=== PATIENT | female | born 1990 | race Caucasian/White ===

== ENCOUNTER 2022-02-05 09:07 | Outpatient (CLI) | payer BC, SELFPAY ==
[2022-02-05 14:25] LABS: SARS PCR* Negative SARS-CoV-2 (Negative)
== END 2022-02-05 09:08 | disposition home or self-care (01) ==
LOC: KYNREF 09:07
PROVIDERS: PCP Family Medicine; Visit Provider Nurse Practitioner Family
DX: Z20.822 Contact with and (suspected) exposure to COVID-19 (principal); Z01.818 Encounter for other preprocedural examination
CPT/HCPCS: 87635

== ENCOUNTER 2022-02-08 09:02 | Day surgery (SDC) | payer BC, SELFPAY ==
[2022-02-08] VITALS (8 sets, daily range): BP systolic 93–123; BP diastolic 52–106; PULSE 65–120; RESP 10–20; TEMP 36.4–36.6; O2SAT 98–100; BMI 23.8
[2022-02-08] MEDS: BUPIVACAINE 0.5%/EPINEPHRINE 0.9 MG (30.9 ML) INJECTION (06:00)
[2022-02-08] MEDS: OXYMETAZOLINE 0.05% NASAL SPRAY 2 SPRAY NOSTRIL-B (09:23)
[2022-02-08] MEDS: LACTATED RINGERS 1000 ML 1,000 ML 100 ML IV (09:30)
[2022-02-08 10:01] LABS: HCG Qualitative* Negative (Negative)
[2022-02-08] MEDS: ETHYL CHLORIDE 1 APPLICATION 1 APPLIC TOPICAL (10:16)
[2022-02-08] MEDS: SODIUM CHLORIDE 0.9 % (FLUSH) 10 ML SYRINGE IVF (10:16)
[2022-02-08] MEDS: LACTATED RINGERS 1000 ML 1,000 ML 105 ML IV (10:30)
[2022-02-08] MEDS: MUPIROCIN 1 GM PACKET 1 APPLIC TOPICAL (10:42)
[2022-02-08] MEDS: COCAINE HCL 4 % 4 ML SOLUTION NOSTRIL-B (10:42)
[2022-02-08] MEDS: AYR SALINE NASAL GEL 1 APPLIC NOSTRIL-B (11:12)
--- NOTE | 2022-02-08 11:18 | W.PM.ENTPROC ---
Procedure Note Date of procedure: 02/08/22 Procedure: Preop diagnosis right maxillary sinus disease inferior turbinate hypertrophy, nasal obstruction Postoperative diagnosis same Findings right maxillary sinus mucous retention cyst Procedure submucous partial resection inferior turbinates endoscopic right maxillary antrostomy with tissue removal Under general trach anesthesia patient was prepped and draped in usual fashion and nose injected and decongested. Image navigation was used for the procedure with registration of 3 mm. The there was a previous right antrostomy that was entered with a curved suction. Agitation of the floor of the sinus with the suction ruptured a maxillary sinus mucous retention cyst and a large amount of purulence mucoid fluid was aspirated. A small amount of tissue was removed with an upbiting ethmoid forceps. The right middle turbinate was crushed prior to this to obtain access to the sinus. The inferior turbinates were then both outfractured a stab incision was made in the anterior right inferior turbinate conservative anterior submucous resection performed with Josemanuel forceps. The Coblation was used for hemostasis and cauterized the inferior 10% this was repeated on the left side in identical fashion. Merocel pack coated in Bactroban was trimmed lengthwise and placed in the side the nose beneath middle turbinates. The patient was taken to recovery satisfactory condition blood loss less than 5 mL Surgeon: Marcel Elias MD
[2022-02-08] MEDS: OXYCODONE 5 MG TABLET PO (12:14)
[2022-02-08] MEDS: IBUPROFEN 200 MG TABLET PO (12:15)
--- NOTE | 2022-02-08 12:39 | W.ANESCHARGE ---
Anesthesia Charges Start Date/Time Anesthesia Start Date: 02/08/22 Anesthesia Start Time: 10:51 Stop Date/Time Anesthesia Stop Date: 02/08/22 Anesthesia Stop Time: 11:31 Summary Emergency: No
--- NOTE | 2022-02-08 13:00 | W.ANESCHARGE ---
Anesthesia Charges Start Date/Time Anesthesia Start Date: 02/08/22 Anesthesia Start Time: 10:51 Stop Date/Time Anesthesia Stop Date: 02/08/22 Anesthesia Stop Time: 11:31 Summary Emergency: No
== END 2022-02-08 12:46 | disposition home or self-care (01) ==
PROVIDERS: Anesthesiology; PCP Family Medicine; Visit Provider Otolaryngology
PROC: (CPT 31231; principal; 2022-02-08 10:30)
DX: J32.0 Chronic maxillary sinusitis (principal); J34.3 Hypertrophy of nasal turbinates; J34.89 Other specified disorders of nose and nasal sinuses; J34.1 Cyst and mucocele of nose and nasal sinus
CPT/HCPCS: 30140; 31267; 00160; 84703; 88305; A9270; J0330; J1100; J2250; J2405; J2704; J3010; J7120

== ENCOUNTER 2022-07-14 14:27 | Emergency (ER) | payer BC, SELFPAY ==
[2022-07-14 15:18] VITALS: BP 119/72; PULSE 82; O2SAT 100
[2022-07-14 15:19] VITALS: PULSE 84; O2SAT 99
[2022-07-14 15:21] VITALS: BP 119/72; PULSE 83; RESP 16; TEMP 36.7; O2SAT 99; BMI 21.6
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
--- NOTE | 2022-07-14 15:50 | CRLHL7_ITS ---
For Patients: As a result of the Century Cures Act, medical imaging exams and procedure reports are released immediately into your electronic medical record. You may view this report before your referring provider. If you have questions, please contact your health care provider. INDICATION: Chest pain. TECHNIQUE: Portable AP chest radiograph. COMPARISON: 10/09/2012. FINDINGS: Lungs and pleural spaces clear. Normal cardiac and mediastinal contours. IMPRESSION: Negative chest radiograph. Dictated by Edward Little MD @ 07/14/2022 4:21:31 PM Dictated by: Edward Little MD @ 07/14/2022 16:21:33 (Electronically Signed)
[2022-07-14 16:06] VITALS: O2SAT 100
[2022-07-14 16:36] LABS: Basophils Absolute Auto 0.02 K/uL (0.00-0.30); Basophils Percent Auto 0.3 % (0.0-3.0); Eosinophils Absolute Auto 0.07 K/uL (0.00-0.50); Eosinophils Percent Auto 0.9 % (0.0-7.0); Hematocrit 43.1 % (33.0-51.0); Hemoglobin* 15.2 gm/dL (12.0-16.0); Immature Granulocytes Abs Auto 0.01 K/uL (0.00-0.30); Immature Granulocytes Pct Auto 0.1 %; Lymphocytes Absolute Auto 1.96 K/uL (0.90-2.90); Lymphocytes Percent Auto 25.7 % (20-44); Mean Corpuscular HGB Conc 35 gm/dL (32-36); Mean Corpuscular Hemoglobin 30 pg (26-34); Mean Corpuscular Volume 84 fL (80-100); Monocytes Percent Auto 4.6 % (0.0-11.0); Neutrophils Absolute Auto 5.22 K/uL (1.7-7.0); Neutrophils Percent Auto 68.4 % (42.0-72.0); Platelet Count* 209 K/uL (140-440); RDW Coefficient of Variation % 11.9 % (11.5-15.5); Red Blood Count 5.12 m/uL (4.00-5.20); White Blood Count* 7.63 K/uL (4.50-11.00)
[2022-07-14 16:37] LABS: Chloride* 105 mmol/L (96-114); Slide Review Reflex No; Sodium* 138 mmol/L (135-149)
[2022-07-14 16:38] LABS: Potassium* 4.1 mmol/L (3.6-5.1)
[2022-07-14 16:40] LABS: Creatinine* 0.8 mg/dL (0.5-1.5); Est. Creatinine Clearance* 90.84; Estimated Glomerular Filt Rate 100 ml/min
[2022-07-14 16:41] LABS: Blood Urea Nitrogen* 13 mg/dL (5-24); Calcium* 9.4 mg/dL (8.4-10.6); Carbon Dioxide* 24 mmol/L (20-32); Glucose* 84 mg/dL (60-115)
[2022-07-14 16:46] LABS: C Reactive Protein* < 0.5 mg/dL (0.5-1.0)
== END 2022-07-14 17:26 | disposition home or self-care (01) ==
PROVIDERS: Emergency Provider Family Medicine; PCP Family Medicine
DX: R07.9 Chest pain, unspecified (principal)
CPT/HCPCS: 36415; 71045; 80048; 84484; 85025; 86140; 93005; 94761; 99284; 99285

== ENCOUNTER 2022-09-25 10:49 | Outpatient (CLI) | payer BC, SELFPAY ==
--- NOTE | 2022-09-25 11:00 | CRLHL7_ITS ---
For Patients: As a result of the Century Cures Act, medical imaging exams and procedure reports are released immediately into your electronic medical record. You may view this report before your referring provider. If you have questions, please contact your health care provider. INDICATION: Sinusitis. TECHNIQUE: Noncontrast CT images acquired through the paranasal sinuses. COMPARISON: CT sinus 12/26/2021. FINDINGS: Postsurgical changes of right maxillary antrostomy. No air-fluid levels to suggest acute sinusitis. Moderate lobulated opacity along the floor of the right maxillary antrum, not significantly changed. The right maxillary sinus outflow tract is widely patent. Minimal left maxillary sinus mucosal thickening. The left ethmoid infundibulum is widely patent. The frontal sinuses are hypoplastic and clear. Minimal mucosal thickening in the ethmoid air cells. Trace mucosal thickening in the left sphenoid sinus. The right sphenoid sinus is clear. The sphenoethmoidal recesses are widely patent. Minimal leftward bowing of the nasal septum. No nasal cavity masses. The mastoid air cells are clear. IMPRESSION: 1. No air-fluid levels to suggest acute sinusitis. No significant change compared to the prior CT. 2. Moderate lobulated opacity along the right maxillary antral floor may be secondary to retention cysts/polyps. The right maxillary sinus outflow tract is widely patent. 3. Postsurgical changes of endoscopic sinus surgery. Please note that all CT scans at this facility use dose modulation, iterative reconstruction, and/or weight-based dosing when appropriate to reduce radiation dose to as low as reasonably achievable. Dictated by Jackson Metz MD @ 09/25/2022 5:53:45 PM (Electronically Signed)
== END 2022-09-25 10:50 | disposition home or self-care (01) ==
LOC: CT 10:50
PROVIDERS: PCP Family Medicine; Visit Provider Otolaryngology
DX: J32.9 Chronic sinusitis, unspecified (principal); J32.0 Chronic maxillary sinusitis
CPT/HCPCS: 70486

== ENCOUNTER 2023-08-26 09:42 | Outpatient (CLI) | payer BC, SELFPAY ==
--- OUTSIDE RECORDS SUMMARY | 2023-08-26 09:49 | XMS_ITS | Data Portability ---
Author Name Unknown Address [address] [place] [id number] Phone [phone] Organization [place] [facility], [place] Address [address] [place] [address] Care Team Providers Care Home Care Music Therapist Name Role Phone KEYLA ELIAS Referring Provider MATT DARNELL PHYSICAL THERAPIST Physical Therapis t Assessment Encounter Date Assessment Date Assessment LastModified by Organization Details LastModified Time 03/26/2022 03/26/2022 CT was taken totom resendez in [place]. Not available 03/26/2022 14:22:18 03/26/2022 03/26/2022 Today I spent a considerable amount of time discussing the patients past medical and personal history, as well as performing a physical examination all of which is documented in it's entirety in the electronic health record. I reviewed the pathophysiology of the disorder, potential contributing and risk factors as well as treatment options to address their complaints. I recommended advanced imaging with CT. Today cone beam CT imaging was obtained. Eloisa was seen in consultation with Dr. Myke Elias. She has a recent history of cystectomy in her sinuses on the right. She is concerned that her anatomy has shifted on the right side. There is downward slanting of occlusal pain on the right however I'm not sure if it's related with the surgery. There is mild edema in the right maxillary sinus on palpation. Therefore, I suggested obtaining a CT of maxilla and mandible. We discussed today that she is experiencing myofascial pain of masticatory and cervical muscles. From a treatment perspective I recommended a rehabilitative treatment approach. Treatment begins with home self management designed to rest the muscles of mastication and reduce inflammation in the temporomandibular joints. This includes heat and ice compresses, eating a soft food or pain-free diet, bilateral chewing identifying and decreasing daytime muscle tension and modification of their sleep position. Today I taught simple jaw exercises designed to improve the jaw mechanics and movement, improve range of mouth opening and improve TM joint fluid circulation to facilitate healing. This includes simple jaw stretch. This was both demonstrated and given in written format. Concurrently I taught proper posture. Beyond self management I believe that they would benefit from a mandibular intraoral appliance. Today we are starting the process of prior authorization to fabricate the oral appliance. In addition I've recommended rehabilitation with physical therapy. This will be done closer to her home in [place]. Today a prescription for cyclobenzaprine 5 mg qhs, was provided to the patient. The risks and benefits associated with the prescribed medication was discussed with the patient today. Patient was asked to discontinue medication intake and return to clinic if significant side effects were noted from the medication. The goal of treatment is to improve pain, function and focus on long-term self-management strategies. I believe that by following these treatment recommendations there is a good prognosis for reduction of symptoms. History was obtained from the patient. The patient has 4 diagnoses they would like to address. This case is moderate complexity because of multiple diagnoses with chronic symptoms. Data reviewed included: outside records. Discussion with pain team members after visit was necessary. Risk of complications include progressive disease/symptoms. Today time spent may have included a review of past records, history taking, review of diagnoses, contributing factors, treatment plan, diagnostic testing, prognosis, expectations, risks and complications of treatment/no treatment, discussions with other providers and completing documentation was 60 minutes. Cost of care and insurance coverage was reviewed and discussed with the patient. Not available 03/26/2022 12:18:26 Plan of Treatment Reminders Order Date Submit Date Provider Last Modified By Organization Details Last Modified Time Details Appointments None recorded. Lab None recorded. Referral physical therapist referral - Please call her to schedule. 2021 022 [email or web address] 3 Matt Darnell Physical Therapist, [address], [address], [place], [address], 10:25:52 Procedures None recorded. Surgeries None recorded. Imaging CT, temporal bone, w/o contrast 2021 022 [email or web address] 3 [place], [facility] [address], [place], [address], 10:27:28 Medication Orders cyclobenzap rine 5 mg tablet 2021 022 [facility] [address] [place] [address], [address], 11:24:14 Patient TargetsNo targets recorded. Patient Instructions Encounter Date Encounter Id Patient Instructions Last Modified By Organization Details Last Modified Time 03/26/2022 [id number] Self Care for TMD Not availab le 03/26/2022 11:24:04 oral appliance preparation* Not available 03/26/2022 11:24:04 Reason for Referral Physical Therapist Referral for Myofascial pain Myofascial pain masticatory and cervical muscles, arthralgia of TMJ and history of sinus surgery Please call her to schedule. Referring Physician: Seth Mix, Pain Management, Encounter Date: 03/26/2022 Results Created Date Observation Date Name Description Value Unit Range Abnormal Flag LastModifiedBy Organization Detail LastModifiedTime 03/26/2003/26/2022 oral appli ance prepa ratio n* Type of appliance mandib ular stabil izatio n applia nce Not Available [place] [address], [place], [address], 03/26/2022 10:19:35 03/26/20 22 04/02/2022 CT, tempo ral bone, w/o contr ast No observ ation record ed. [place] [address], [place], [address], 04/14/2022 15:29:37 04/11/20 CT, tempo ral bone, w/o contr ast No observ ation record ed. [email or web address] [place] [address], [place], [address], 04/11/2022 10:06:02 Result Notes None recorded. 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 022 SETH MIX BDS, [place] [address], [place], [address], [place] [facility] 2 12:01:52 Myofascial pain Active 022 SETH MIX BDS, [place] [address], [place], [address], [facility] 2 12:01:54 Arthralgia of temporomandibular joint Active 022 SETH MIX BDS, [place] [address], [place], [address], [place] [facility] 2 12:02:26 History of nasal sinus surgery Active 022 SETH MIX BDS, [place] [address], [place], [address], [facility] 2 12:03:14 Problem Notes None recorded. Procedures Surgical History Date Name Laterality Status Provider Name and Address Organization Details Recorded Time 03/26/2022 CT TMJ completed Lanette sahu, [facility] 03/26/2022 12:36:45 Imaging Results Imaging Date Name Status LastModified by [facility] Details LastModified Time 04/02/2022 CT, temporal bone, w/o contrast completed [place] [address], [place], [address], 04/14/2022 15:29:37 04/11/2022 CT, temporal bone, w/o contrast completed [email or web address] [place] [address], [place], [address], 04/11/2022 10:06:02 Procedure Notes None recorded. Medical Equipment None Reported. Allergies No known drug allergies Medications Name Sig Start Date Stop Date Status Note LastModified by Organization Details LastModified Time doxycycline hyclate 100 mg capsule TAKE 1 CAPSULE BY MOUTH TWICE DAILY FOR 10 DAYS 03/26 completed Not Available Not Available Not Available cephalexin 250 mg capsule TAKE 1 CAPSULE BY MOUTH THREE TIMES DAILY 03/26 completed Not Available Not Available Not Available ondansetron 4 mg disintegrat ing tablet DISSOLVE 1 TABLET IN MOUTH EVERY 8 HOURS 03/26 completed Not Available Not Available Not Available oxycodone 5 mg tablet TAKE 1 TABLET BY MOUTH EVERY 4 HOURS NEEDED FOR PAIN 03/26 completed Not Available Not Available Not Available cyclobenzap rine 5 mg tablet Take 1 tablet every day by oral route at dinner for 30 days. active Not Available Not Available No t Available Vitals Date Recorded Body height Body mass index (BMI) Body weight Body temperature Heart rate Systolic blood pressure Diastolic blood pressure Provider Name and Address Organization Details Last Updated DateTime 2 165.1 cm 23.3 kg/m2 33792.9 3 g 97.5 [degF] 82 /min 103 mm[Hg] 72 mm[Hg] Bhanu sahu [facility] 2 10:24:13 Date Recorded Body height Provider Name an d Address Organization Details Last Updated DateTime 03/26/2022 165.1 cm Lanette sahu [facility] 03/26/2022 12:36:53 Social History Question Answer Notes LastModified by Organizat ion Details LastModified Time Tobacco Smoking Status Former Smoker Bhanu sahu [facility] 03/26/2022 10:25:39 What Is Your Level Of Alcohol Consumption? Occasional Information not available 03/26/2022 What Is Your Level Of Caffeine Consumption? Occasional Information not available 03/26/2022 Are You Currently Employed? No Information not available 03/26/2022 What Type Of Diet Are You Following? REGULAR Information not available 03/26/2022 What Is The Highest Grade Or Level Of School You Have Completed Or The Highest Degree You Have Received? [id number] Information not available 03/26/2022 What Is Your Relationship Status? Information not available 03/26/2022 Sex: Female Functional Status Question Answer Note LastModified by Organizat ion Details LastModified Time What is your exercise level? Occasional Information not available 03/26/2022 Mental Status None recorded. Family History Relationship Description Onset Age of this Age Resolved Age Notes Father Arthritis Father Diabetes mellitus Mother Arthritis Mother Depressive disorder Mother Headache Paternal Grandfather Diabetes mellitus Paternal Grandmother Heart disease Medical History Condition Response Coronary Artery Disease N Other Y Gout N Chronic fatigue syndrome N Hyperthyroidism N Premenstrual syndrome (PMS) N MRSA Y Head Trauma/Injury Y Emphysema N Irritable bowel syndrome N Glaucoma N Lung Disease N COPD N Hypothyroidism N Depression N Pneumonia N Pacemaker N Obstructive Sleep Apnea N Anxiety Disorder N Autoimmune disease N Muscle, Joint, or Bone Problems N Vision or Eye Problems N Arthritis Y Serious Illness or Injuries N Acid Reflux (GERD) N Cancer N Stroke N Eating disorder N Neck Injury N Back Injury N High Cholesterol N History of chemotherapy N Neurologic Disorder N Liver Disease N Organ Transplant N Rheumatoid Arthritis N Headaches Y Fibromyalgia N Kidney Disease N Allergies/Hayfever N Post traumatic stress disorder (PTSD) N Parkinson's Disease N Migraines N Brain Tumors N Anemia N Multiple Sclerosis N Immune System Disorder N Meningitis N Pancreatic disease N Heart Attack ([place]) N Stomach Ulcers N Back pain Y Diabetes N Bleeding Disorder N Seizures/Epilepsy N Sjogren's syndrome N Tuberculosis N AIDS/HIV N History of radiation therapy N Hyperlipidemia N Dementia N Asthma N Physical or sexual abuse N Substance Abuse N Peripheral Vascular Disease N Psoriasis N Reflux/GERD N Mental Problems N Vertigo N Sleep Disorder N Aneurysm N Hepatitis N Heart Disease N Neuropathy N Pulmonary Embolism N Hypertension N Osteoporosis N Gynecological HistoryNo gynecological history recorded. Obstetrics History GPAL:G 0 P 0 0 0 0 Past Encounters Encounter ID Performer Location Encounter Start Date Encounter Closed Date Diagnosis/Indication [id number] SETH MIX BDS, [facility] [address] [place] [address] 03/26/2022 10:00:05 03/26/2022 11:29:16 Articular disc disorder of temporomandibular joint Myofascial pain Arthralgia of temporomandibular joint History of nasal sinus surgery [id number] SETH MIX BDS, [place] [facility] [address] [place] [address] 03/26/2022 12:17:09 03/26/2022 14:12:05 Arthralgia of temporomandibular joint Health Concerns Section Related Observation LastModified by Organization Detai ls LastModified Time None Recorded Concern Status LastModified by Organization Details LastModified Time None Recorded Advance Directives Directive None Recorded Payers Encounter Date Sequence Insurance Name Policy Number Policy Garcia Covered Member ID Garcia Member ID Guarantor Name 03/26/2022 1 [facility] ([facility] REPLAC[place] - HMO) [facility] [id number] Eloisa aBnerjee 03/26/2022 1 [facility] (MEDICAID REPLACEMENT - HMO) [facility] El[facility] aBnerjee [id number] Eloisa Chriss Notes Date Note Type Note Provider Name and Address Organization Details Recorded Time 2 text/html HPI Notes: general HPI for jaw, face, TMD pain Reported by patient. Onset: started 2 year(s) ago Location: bilateral; mandibular; preauricular; temporal Quality: dull; aching; sore; sharp; stabbing Severity: pain level 8/10; radiating to the ear (neck) Duration constant Symptom triggers: clenching; stress; surgery; chews hard/crunchy/chewy foods Aggravating Factors: stress; yawning; wide mouth opening Alleviating Factors: none Associated Symptoms: jaw clicking bilateral; headaches Prior opinion ENT Patient presents today for evaluation of a possible temporomandibular disorder. These symptoms are acute and began possibly with cystectomy. Previous consultation include evaluation with her ENT-Dr. Pollard. Symptoms are bilateral and aggravated by jaw use and function. The patient is aware of teeth clenching and grinding. Eloisa has been referred by her ENT DrUmberto Elias. Eloisa states that for the last 2 years, she is noticing jaw pain with opening her mouth and eating. She is noticing cracking in the TMJ and is concerned that her TMJ may have been displaced with the cyst. She states that Dr. Elias is concerned about the same as well. Cyst removal was done in January 2022. Eloisa also has neck pain. She is supposed to see a neck specialist in Apr. She thinks she might need PT. Chewing is very hard for her to do. She has limited mouth opening. She states that smiling hurts. She used to go to the chiropractor but afraid to go since surgery. She had a cyst in right sinus. She does not recall which sinus. She has had a history of polyps in sinus which were removed when she was 14. She noticed head pressure and sinus pressure which helped to diagnose the cyst. She states that with cyst she has been noticing memory loss and feels slow. Eloisa is not working at present. SETH MIX BDS, [place] [address], [place], [address], [facility] 03/26/2022 12:20:03 2 text/html HPI Notes: ct scan in [facility] SETH MIX BDS, [place] [address], [place], [address], [facility] 03/26/2022 14:22:55 OBGyn Episode No OBEpisode recorded.
--- OUTSIDE RECORDS SUMMARY | 2023-08-26 09:49 | XMS_ITS | Clinical Summary ---
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 Anxiety state, unspecified F41.1 ADHD (attention deficit hyperactivity disorder) F90.9 Arthralgia of temporomandibular joint M26.629 Gastroesophageal reflux disease K21.9 Mixed anxiety depressive disorder F41.8 Myofascial pain M79.18 Deviated septum J34.2 Methamphetamine dependence in remission (HC) F15.21 Chilblain T69.1XXA Mass of upper outer quadrant of right breast N63.11 Encounter for supervision of low-risk in second trimester Z34.92 OBJECTIVE: PHYSICAL EXAM: BP 98/58 (Cuff Site: Right Arm, Position: Sitting, Cuff Size: Adult Regular) Pulse 80 Wt 64.2 kg (141 lb 8 oz) LMP 09/28/2022 (Exact Date) BMI 23.55 kg/m?? See OB Vitals section also. General Appearance: Pleasant, alert, appropriate appearance for age. No acute distress Chest/Respiratory Exam: Normal chest wall and respirations. Clear to auscultation. Cardiovascular Exam: Regular rate and rhythm. Normal S1, S2 Lower extremity edema: scant Skin: acne vulgaris around nose and on chin ASSESSMENT/PLAN: Eloisa Banerjee at 29w3d with Estimated Date of Delivery: 07/05/23 who presents for return OB visit. ICD-10-CM 1. Acne vulgaris L70.0 2. Neck pain, chronic M54.2 G89.29 3. Deviated septum J34.2 4. Nasal sinus cyst J34.1 5. Vaginal discharge N89.8 6. Fundal height low for dates in third trimester O26.843 -REviewed ENT recommendations about neck pain. Independently reviewed dereje's labs, normal. For the neck pain, we can order an ultrasound in 6 months. Whenever you are ready, you can talk with [facility] about removing the lymph node if that is still what you wish- you can do this at evaluation for sinus and nasal polyps. -Fundal height only 26, we will check growth ultrasound in a few weeks. 20 week growth showing 43%. Recommended Tdap, flu and COVID-19 shots today. Patient declines all shots in despite recommendations and detailed discussion. ~ Follow up: 2 week(s); earlier if any problems. ~ Instructed to return to clinic or call if symptoms change or worsen. Orders Placed This Encounter US OB FOLLOW UP ANY TRI SINGLE TA TRICHOMONAS, TEODORO, AND BACTERIAL VAGINOSIS BY AICHA GC & CHLAMYDIA DNA PCR [[id number]] clindamycin 1% (CLEOCIN-T) 1 % gel Elsa Smith MD Progress Notes - OB Encounte r - 03/25/2023 - GA:25w3d 03/25/2023 - 25w3d - Elsa Smith MD See OB Vitals section also. SUBJECTIVE: Eloisa Banerjee at 25w3d with Estimated Date of Delivery: 07/05/23 who presents for return OB visit. Concerns/complaints: Continues having issues with nasal/sinus cyst and polyp. Causing a lot of discomfort. Saw ENT who will plan on surgical intervention after . Patient continues having pain that she has had just behind the right jaw and below the right ear. She wants to get this figured out before her ends. She feels like there could be a blockage or a tumor. She does report some dryness in her mouth this . She is requesting an MRI today. Patient has a hsitory of presyncopal episodes with last . Two weeks ago, she did start to feel lightheaded at the grocery store, she went over to a bench but felt darkening in her vision so lowered herself to the floor. She then started to feel better. Unsure if she fully passed out. This happened one other time but she was able to rest, get water Any Vaginal Bleeding?: no Contractions?:no Urinary Complaints?: no Movement: yes Patient Active Problem List Diagnosis Code Anxiety state, unspecified F41.1 ADHD (attention deficit hyperactivity disorder) F90.9 Arthralgia of temporomandibular joint M26.629 Gastroesophageal reflux disease K21.9 Mixed anxiety depressive disorder F41.8 Myofascial pain M79.18 Deviated septum J34.2 Methamphetamine dependence in remission (HC) F15.21 Chilblain T69.1XXA Mass of upper outer quadrant of right breast N63.11 Encounter for supervision of low-risk in second trimester Z34.92 OBJECTIVE: PHYSICAL EXAM: BP 92/52 (Cuff Site: Right Arm, Position: Sitting, Cuff Size: Adult Regular) Pulse 88 Wt 62.1 kg (136 lb 12.8 oz) LMP 09/28/2022 (Exact Date) BMI 22.76 kg/m?? See OB Vitals section also. General Appearance: Pleasant, alert, appropriate appearance for age. No acute distress HEENT: Ongoing tenderness just behind jaw and below ear on the right. lymph node palpable but pain is just behind that. Lymph node not enlarged. Chest/Respiratory Exam: Normal chest wall and respirations. Clear to auscultation. Cardiovascular Exam: Regular rate and rhythm. Normal S1, S2 Lower extremity edema: none ASSESSMENT/PLAN: Eloisa Banerjee at 25w3d with Estimated Date of Delivery: 07/05/23 who presents for return OB visit. ICD-10-CM 1. , unspecified gestational age Z34.90 2. Nasal sinus cyst J34.1 3. Nasal sinus polyp J33.8 4. Neck pain, chronic M54.2 G89.29 5. Jaw pain R68.84 Patient has 4-5 years of ongoing pain and some tenderness behind the right jaw and below the right ear. She feels there is a bump or enlargement in this area but I have only felt a normal sized lymph node. She has had extensive workup by myself and ENT doc Dr. Sexton with [facility]. Ultrasound and CT scans normal. She is worried there is a blockage or a tumor and requesting an MRI. I think this is very unlikely given normal workup recently and stable chronic symptoms. I am hesitant to perform extensive further workup given she is currently , though MRI would be safe I am not sure how much additional information it will give us about the area. She was referred at one point to TMJ clinic by her ENT but [place] cities and [place] to follow with. She tried to reach out to her ENT who told her to see the ENT team here for this. I will refer to them and see if they can assist with further diagnosis as it doesn't seem classic for TMJ syndrome. If there are any indications for MRI this would be safe. ~ Follow up: 4 week(s); earlier if any problems. ~ Instructed to return to clinic or call if symptoms change or worsen. Orders Placed This Encounter GLUCOSE,GESTATIONAL HEMOGLOBIN TREPONEMA PALLIDUM Elsa Smith MD Progress Notes - OB Encounte r - 01/31/2023 - GA:17w6d 01/31/2023 - w6d - Elsa Smith MD See OB Vitals section also. SUBJECTIVE: Eloisa Banerjee at 17w6d with Estimated Date of Delivery: 07/05/23 who presents for return OB visit. Concerns/complaints: Still having some nasal drainage and dry nose. Movement: present Any Vaginal Bleeding?: no Contractions?:no Patient Active Problem List Diagnosis Code Anxiety state, unspecified F41.1 ADHD (attention deficit hyperactivity disorder) F90.9 Arthralgia of temporomandibular joint M26.629 Gastroesophageal reflux disease K21.9 Mixed anxiety depressive disorder F41.8 Myofascial pain M79.18 Deviated septum J34.2 Methamphetamine dependence in remission (HC) F15.21 Chilblain T69.1XXA Mass of upper outer quadrant of right breast N63.11 Encounter for supervision of low-risk in second trimester Z34.92 OBJECTIVE: PHYSICAL EXAM: BP 112/56 (Cuff Site: Right Arm, Position: Sitting, Cuff Size: Adult Regular) Pulse 82 Wt 58.8 kg (129 lb 9.6 oz) LMP 09/28/2022 (Exact Date) BMI 21.57 kg/m?? See OB Vitals section also. General Appearance: Pleasant, alert, appropriate appearance for age. No acute distress Chest/Respiratory Exam: Normal chest wall and respirations. Clear to auscultation. Cardiovascular Exam: Regular rate and rhythm. Normal S1, S2 Lower extremity edema: none ASSESSMENT/PLAN: Eloisa Banerjee at 17w6d with Estimated Date of Delivery: 07/05/23 who presents for return OB visit. ICD-10-CM 1. 17 weeks gestation of Z3A.17 ~ Patient prefers second trimester screen to cell-free DNA. Discussed options. ~ Follow up: 4 week(s); earlier if any problems. ~ Instructed to return to clinic or call if symptoms change or worsen. ~ At next visit we will plan on discuss ultrasound Orders Placed This Encounter US OB BASIC ANATOMY SCREEN SINGLE TA AFP TETRA Elsa Smith MD Progress Notes - OB Encounte r - 01/03/2023 - GA:13w6d 01/03/2023 - w - Elsa Smith MD See OB Vitals section also. SUBJECTIVE: Eloisa Banerjee at 13w6d with Estimated Date of Delivery: 07/05/23 who presents for return OB visit. Concerns/complaints: -Has had a few weeks of thick green mucous with some streaks of blood on the right. Has some maxillary sinus pressure at baseline from cysts but feels worse and getting headaches. -Has been using the fluconazole which hasn't been helping. -Patient had a WIC appointment yesterday and had hemoglobin checked with a 10.2. However, 1.5 months ago it was 14.4 here. Patient does feel a bit of pressure in her abdomen sometimes. Will happen when she is stressed. This went away a week ago and hasn't come back. Would like to see ENT or get an MRI for the bump behind her right jaw. Any Vaginal Bleeding?: no Contractions?:no Patient Active Problem List Diagnosis Code Anxiety state, unspecified F41.1 ADHD (attention deficit hyperactivity disorder) F90.9 Arthralgia of temporomandibular joint M26.629 Gastroesophageal reflux disease K21.9 Mixed anxiety depressive disorder F41.8 Myofascial pain M79.18 Deviated septum J34.2 Methamphetamine dependence in remission (HC) F15.21 Chilblain T69.1XXA Mass of upper outer quadrant of right breast N63.11 OBJECTIVE: PHYSICAL EXAM: BP 92/50 (Cuff Site: Right Arm, Position: Sitting, Cuff Size: Adult Regular) Pulse 88 Wt 57.4 kg (126 lb 8 oz) LMP 09/28/2022 (Exact Date) BMI 21.05 kg/m?? See OB Vitals section also. General Appearance: Pleasant, alert, appropriate appearance for age. No acute distress HEENT: maxillary tenderness on the right side. Boggy nares with erythema and yellow discharge. Right sided lymph node palpable just below ear behind jaw, slightly larger on the right than left. Chest/Respiratory Exam: Normal chest wall and respirations. Clear to auscultation. Cardiovascular Exam: Regular rate and rhythm. Normal S1, S2 Lower extremity edema: scant ASSESSMENT/PLAN: Eloisa Banerjee at 13w6d with Estimated Date of Delivery: 07/05/23 who presents for return OB visit. ICD-10-CM 1. Acute non-recurrent maxillary sinusitis J01.00 2. Low hemoglobin D64.9 3. Neck pain M54.2 4. Lesion of neck L98.9 5. Tender lymph node R09.89 6. Encounter for supervision of low-risk in second trimester Z34.92 -Patient has had years of tender feeling bump on the right neck below the jaw. Ultrasound showing normal sized lymph node in that area, but patient has had years of pain and reports difficulty swallowing. Wondering about getting an MRI, she is so that would be safe but I think she needs to go back to see ENT first. Has a sinus infection which causes cervical lymphnode tenderness so we will treat that, but patient reports this going on for years. -Will repeat hemoglobin because her hemoglobin was 14.4 1.5 months ago and reported to be 10.2 at [facility]. ~ Follow up: 4 week(s); earlier if any problems. ~ Instructed to return to clinic or call if symptoms change or worsen. ~ Call insurance to see if genetic testing is covered. Orders Placed This Encounter HEMOGLOBIN AMB CONSULT TO AUDIOLOGY AND ENT amoxicillin (AMOXIL) 500 mg tablet Elsa Smith MD Progress Notes - OB Encounte r - 12/03/2022 - GA:9w3d 12/03/2022 - 9w3d - Elsa Smith MD FIRST OB VISIT HPI: Eloisa Banerjee is a 32 y.o. female at 9w3d with sneed intrauterine here today for a initial OB exam. Estimated due date is Estimated Date of Delivery: 07/05/23 based on LMP consent with 8 week ultrasound. Patient having some nasal congestion and feeling some pressure in her head from this. Worse with allergy season. She has a growth in her right neck since 2019. Has seen ENT in the past in 2021 who didn't really give her a clear answer about it. He sent her to the TMJ clinic to have them look closer at it. They were focusing on mucous retention cysts. She is wondering what this could be. She was diagnosed with peripheral vasospasm and chilblain in her left knee by vascular surgery. She is still wondering if it could be musculoskeletal underneath and wondering about a knee ultrasound or xray. Her knee is feeling better overall though. Nausea/Vomiting: yes, patient has had a lot of food aversions. Eating fruit, pizza, pasta. Does not want medication. Breast tenderness: yes Fatigue: yes Bleeding: no Taking vitamins: yes Options of sequential screen, cell-free DNA testing, amniocentesis were discussed. We will discuss at next visit. AMA: no Previous : no OB History Para Term AB Living 3 2 2 0 0 2 SAB IAB Ectopic Multiple Live Births 0 0 0 0 2 # Outcome Date GA Lbr Pierre/2nd Weight Sex Delivery Anes PTL Lv 3 Current 2 Term 01/23/15 40w3d 3.71 kg (8 lb 3 oz) M VAGINAL [place] EPIDURAL N GONZALEZ 1 Term 08/23/11 40w0d 3.18 kg (7 lb) M Vag-Spont N GONZALEZ Patient was induced with both of her pregnancies. No reason for induction, postdates. Past Medical History: . Date ? ? ADHD (attention deficit hyperactivity disorder) ? ? Anxiety and depression ? ? Drug-seeking behavior 05/25/2014 ? ? GERD (gastroesophageal reflux disease) ? ? Hx MRSA infection 2011 Cleared 10/28/11, 11/04/11, 12/12/14 ? ? IV drug abuse (HC) ? ? Methamphetamine abuse (HC) 09/2012 using IV ? ? 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 ? Personal history of smoking ? ? Tobacco dependence syndrome 12/12/2014 Past Surgical History: . Laterality Date ? ? (IA) DE EXCISION NOSE POLYP(S)SIMPLE ? ? hx chalazion to eye ? ? VAGINAL DELIVERY X 2 Family History Problem Relation Age of Onset ? ? Cancer-breast Paternal Grandmother ? ? Cancer-prostate Paternal Grandfather ? ? Cancer Maternal Grandfather bile duct ? ? Good Health Son Social History Tobacco Use ? ? Smoking status: Former Current packs/day: 0.00 Types: Cigarettes Quit date: 07/14/2006 Years since quittin.4 ? ? Smokeless tobacco: Never Vaping Use ? ? Vaping Use: Never used Substance Use Topics ? ? Alcohol use: No Alcohol/week: 0.0 standard drinks of alcohol Comment: Occasionally. Current Outpatient Medications Medication Sig ? ? jmkyotl-kqls-tybso acid (PREPLUS;NATALCARE PLUS) 27 mg iron- 1 mg tablet Take 1 Tablet by mouth once daily. No current facility-administered medications for this visit. Medications have been reviewed by me and are current to the best of my knowledge and ability. ALLERGIES Patient has no known allergies. MENTAL HEALTH HISTORY History of psychiatric diagnosis: history of depression and anxiety but has not had any issues with this recently. Current mental health provider: not applicable Currently taking any psychiatric medications? Not Applicable INFECTION HISTORY Current Drug Use: none Relevant infection history from OB Questionnaire: History of meth use in 2015 and has been sober since. REVIEW OF SYSTEMS Comprehensive ROS complete and negative other than noted in HPI and on OB Questionnaire. PHYSICAL EXAM BP 90/60 (Cuff Site: Right Arm, Position: Sitting, Cuff Size: Adult Regular) Pulse 78 Wt 55.9 kg (123 lb 3.2 oz) LMP 09/28/2022 (Exact Date) BMI 20.50 kg/m?? General Appearance: Alert, appropriate appearance for age. No acute distress. HEENT Exam: Grossly normal. Neck/Thyroid Exam: Supple, no masses, nodes or enlargement. Lungs: Clear to auscultation bilaterally. Breast Exam: Recently performed Cardiovascular Exam: Regular rate and rhythm. S1, S2, no murmur. Abd: Soft, non-tender, no masses or organomegaly. Skin: no rashes or lesions. Lymphatics: no nodes palpable. Psychiatric Exam: Alert and oriented x 3, appropriate affect. ASSESSMENT/PLAN 32 y.o. at 9w3d with sneed intrauterine . ICD-10-CM 1. , unspecified gestational age Z34.90 2. Chilblains, initial encounter T69.1XXA 3. Tender lymph node R09.89 US NECK OR HEAD SOFT TISSUE Her vascular issue with her knee will be followed by vascular surgery with lifestyle changes. Her knee is feeling better so I don't think we should obtain imaging, and I wouldn't recommend xray in regardless unless absolutely necessary. Patient okay with this. I feel a lymph node that doesn't feel enlarged on patients neck but she has significant concerns about enlargement so we will ultrasound. Back to ENT if abnormal. Satisfactory exam. Demonstrates appropriate and health-seeking behaviors toward her . Verbalizes good understanding of care schedule and the importance of coming to each visit as scheduled. Start/continue vitamins. Reviewed labs. She was encouraged to call the office with any questions or concerns. Body mass index is 20.5 kg/m??. Diet and expected weight gain discussed with patient. Elsa Smith MD 12/03/2022 2:23 PM Total time preparing to see this patient, rjyw-kd-gzuk time, and coordinating care time on the same calendar date: 44 minutes. Last Filed Vital Signs Vital Sign Reading Time Taken Comments Blood Pressure 112/55 07/01/2023 7:45 PM [employer] Pulse 67 07/01/2023 7:45 PM [employer] Temperature 36.7 ??C (98 ??F) 07/01/2023 7:45 PM [employer] Respiratory Rate 16 07/01/2023 7:45 PM [employer] Oxygen Saturation 99% 06/30/2023 7:15 PM [employer] Inhaled Oxygen Concentration - - Weight 68.5 kg (151 lb 1.6 oz) 06/23/2023 1:18 P M [employer] Height 165.1 cm (5' 5) 10/29/2022 7:23 PM CDT Body Mass Index 25.14 10/29/2022 7:23 PM CDT Plan of Treatment Upcoming Encounters Date Type Department Care Team (Late st Contact Info) Description 09/01/2023 10:05 AM [employer] Office Visit [facility] [address] [place] [id number] Elsa Smith MD [address], [place] [id number] Health Maintenance Due Date Last Done Comments COVID-19 vaccine series (#1) 1990 Tetanus booster 03/21/2020 03/21/2010, 03/03/2002 Influenza for age 9-49 03/14/2023 04/10/2012, 2010 Depression screening for age 12+ 08/16/2023 08/16/2022 BMI (ht and wt on same day) for age 18+ 10/16/2023 10/15/2022, 08/16/2022 Pap test for age 21-65 05/14/2024 9 (Verified in Care Everywhere or Patient Record), 04/22/2012 Tdap Completed 03/21/2010 HIV for age 15-65 Completed 11/11/2022, , 08/30/2014, Additional history exists Hepatitis C screening for age 18-79 Completed 11/11/2022, 12/01/2021 Pneumococcal series for age 6-64 Aged Out No longer eligible based on patient's age to complete this topic Procedures Procedure Name Priority Date/Time Associated Diagnosis Comments TRICHOMONAS, TEODORO, AND BACTERIAL VAGINOSIS BY AICHA Today 07/01/2023 5:44 PM [employer] [facility] TUBING PR5 Routine 06/30/2023 1:45 PM [employer] [facility] LABOR EPIDURAL INITIAL Routine 06/30/2023 1:45 PM [employer] EPIDURAL BLOCK Routine 06/30/2023 1:45 PM [employer] [facility] DRSG PR1 Routine 06/30/2023 1:45 PM [employer] [facility] KIT EPIDURAL PR10 Routine 06/30/2023 1:45 PM [employer] RED CELL MORPHOLOGY Timed 06/30/2023 1 1:59 AM [employer] PLATELET ESTIMATE Timed 06/30/2023 11: 59 AM [employer] MANUAL DIFFERENTIAL Timed 06/30/2023 1 1:59 AM [employer] EXTRA TUBE LIGHT GREEN Today 06/30/2023 11:59 AM [employer] CBC WITH AUTO DIFFERENTIAL Today 06/30/2023 11:59 AM [employer] CBC WITH AUTO DIFFERENTIAL Today 06/30/2023 11:59 AM [employer] VAGINAL/RECTAL OB STREP PCR Routine 06/09/2023 10:15 AM [employer] 36 weeks gestation of TRICHOMONAS, TEODORO, AND BACTERIAL VAGINOSIS BY AICHA Routine 06/03/2023 11:09 AM [employer] Vaginal irritation from Last 3 Months Results * TRICHOMONAS, TEODORO, AND BACTERIAL VAGINOSIS BY AICHA (07/01/2023 5:44 PM [employer]) Only the most recent of2 resultswithin the time period is included. TEODORO SPECIES Negative Negative 3 3:49 PM [employer] [facility] TEODORO GLABRATA Negative Negative 07/02/2023 3:49 PM [employer] [facility] TRICHOMONAS VVA Negative Negative 3 3:49 PM [employer] [facility] BACTERIAL VAGINOSIS Negative Negative 07/02/2023 3:49 PM [employer] [facility] Other VAGINAL SWAB / Unknown Non-Blood / Unknown 07/01/2023 5:44 PM [employer] 07/01/2023 7:30 PM [employer] Renny Quinn DO [facility] [address] [place] [address], * [facility] KIT EPIDURAL PR10, [facility] DRSG PR1, EPIDURAL BLOCK, [facility] LABOR EPIDURAL INITIAL, [facility] TUBING PR5(06/30/2023 1:45 PM [employer]) Narrative Daxa Thompson CRNA - 06/30/2023 1:45 PM [employer] Daxa Thompson CRNA ? 06/30/2023 ??2:10 PM Labor Analgesia Labor Analgesia Type: CSE Patient location during procedure: OB Start time: 06/30/2023 1:45 PM End time: 06/30/2023 2:08 PM Diagnosis: labor pain ASA: 2 Completed: patient identified, risks and benefits discussed, timeout performed, chloraprep used and completely dried prior to procedure and surgical consent Spinal Needle Technique: [id number] Needle type: pencil-tip Needle gauge: 27 G Needle length: 5 in Location: L3-4 Patient position: sitting Patient monitoring: continuous pulse oximetry and blood pressure Approach: midline Prep: chloraprep Lumbar location: L3-4 Skin Infiltration: lidocaine 1% ILENE: saline Epidural Location: lumbar Needle and Epidural Catheter Needle type: Tuohy Needle gauge: 18 G Needle length: 3.5 in Needle insertion depth: 3.5 cm Catheter type: closed tip Catheter size: 20 G Aspiration of Catheter: negative Catheter at skin depth: 8 cm Test dose: lidocaine 1.5% with epinephrine 1:200,000 Test dose amount: 3 ml Test dose result: negative Assessment Sensory level: T10 Events: no complications Additional Notes Called for epidural placement. Pt placed in sitting position. Local injection at 1347. Easy placement of tuohy needle into the epidural space, 27 g intrathecal catheter placed through the tuohy, clear CSF present and 4 mcg of precedex injected at 1349 and intrathecal needle removed. Catheter threaded easily. Negative test dose given at 1350 . ??Atraumatic placement. No complications noted. Pt tolerated well. ?? Daxa Thompson [employer] ANESTHESIA PX NOTE ORDERABLES * (ABNORMAL) CBC WITH AUTO DIFFERENTIAL (06/30/2023 11:59 AM [employer]) WHITE BLOOD COUNT 10.8 4.5 - 11.0 thou/cu mm 06/30/2023 12:33 PM [facility] RED BLOOD COUNT 4.02 4.00 - 5.20 mil/cu mm 06/30/2023 12:33 PM [facility] HEMOGLOBIN 12.1 12.0 - 16.0 g/dL 06/30/2023 12:33 PM [facility] HEMATOCRIT 35.2 33.0 - 51.0 % 06/30/2023 12:33 PM [facility] MCV 88 80 - 100 fL 06/30/2023 12:33 PM [facility] MCH 30.1 26.0 - 34.0 pg 06/30/2023 12:33 PM [facility] MCHC 34.4 32.0 - 36.0 g/dL 06/30/2023 12:33 PM [facility] RDW 12.7 11.5 - 15.5 % 06/30/2023 12:33 PM [facility] PLATELET COUNT 184 140 - 440 thou/cu mm 06/30/2023 12:33 PM [facility] MPV 11.8(H) 6.5 - 11.0 fL 06/30/2023 12:33 PM [facility] Blood BLOOD SPECIMEN / Unknown Venipuncture / Unknown 06/30/2023 11:59 AM [employer] 06/30/2023 12:01 PM [employer] Renny Quinn DO HEMATOLOGY [facility] [address] [place] [address] * RED CELL MORPHOLOGY (06/30/2023 11:59 AM [employer]) RBC COMMENT RBC morphology appears normal RBC morphology appears normal, RBC morphology within normal limits for newborns. 06/30/2023 12:33 PM [employer] [facility] LARGE PLATELETS Present 06/30/2023 12:33 PM [employer] [facility] Blood BLOOD SPECIMEN / Unknown Venipuncture / Unknown 06/30/2023 11:59 AM [employer] 06/30/2023 12:01 PM [employer] Renny Quinn DO HEMATOLOGY Performing Organization Address City/[facility]/ZIP Co de Phone Number [facility] [address] [place] [address] * PLATELET ESTIMATE (06/30/2023 11:59 AM [employer]) Pathologist [facility] PLATELET ESTIMATE Adequate Adequate, No estimate 06/30/2023 12:33 PM [employer] [facility] Blood BLOOD SPECIMEN / Unknown Venipuncture / Unknown 06/30/2023 11:59 AM [employer] 06/30/2023 12:01 PM [employer] Renny Quinn DO HEMATOLOGY Performing Organization Address [facility]/ZIP Co de Phone Number [facility] [address] [place] [address] * EXTRA TUBE LIGHT GREEN (06/30/2023 11:59 AM [employer]) Blood BLOOD SPECIMEN / Unknown Extra Tube / Unknown 06/30/2023 11:59 AM [employer] 06/30/2023 12:22 PM [employer] Doctor Unknown LABORATORY Performing Organization Address City/[facility]/ZIP Co de Phone Number [facility] [address] [place] [address] * (ABNORMAL) MANUAL DIFFERENTIAL (06/30/2023 11:59 AM [employer]) Pathologist [facility] % NEUTROPHILS 75.0 % 06/30/2023 12:33 PM [employer] [facility] % LYMPHOCYTES 23.0 % 06/30/2023 12:33 PM [employer] [facility] % MONOCYTES 2.0 % 06/30/2023 12:33 PM [employer] [facility] % EOSINOPHILS 0.0 % 06/30/2023 12:33 PM [employer] [facility] % BASOPHILS 0.0 % 06/30/2023 12:33 PM [facility] NEUTROPHILS ABSOLUTE 8.1(H) 1.7 - 7.0 thou/cu mm 06/30/2023 12:33 PM [employer] [facility] LYMPHOCYTES ABSOLUTE 2.5 0.9 - 2.9 thou/cu mm 06/30/2023 12:33 PM [facility] MONOCYTES ABSOLUTE 0.2 <0.9 thou/cu mm 06/30/2023 12:33 PM [employer] [facility] EOSINOPHILS ABSOLUTE 0.0 <0.5 thou/cu mm 06/30/2023 12:33 PM [facility] BASOPHILS ABSOLUTE 0.0 <0.3 thou/cu mm 06/30/2023 12:33 PM [employer] [facility] Blood BLOOD SPECIMEN / Unknown Venipuncture / Unknown 06/30/2023 11:59 AM [employer] 06/30/2023 12:01 PM [employer] Renny Quinn DO HEMATOLOGY [facility] [address] [place] [address] * VAGINAL/RECTAL OB STREP PCR (06/09/2023 10:15 AM [employer]) Vaginal/Rectal OB Strep B PCR Negative 06/11/2023 10:21 AM [employer] SU[employer]OR [facility] Other (Vaginal/Rectal) Non-Blood / Unknown 06/09/2023 10:15 AM [employer] 06/09/2023 10:49 AM [employer] Elsa Smith MD MICROBIOLOG Y [facility] [address] [place] [address], from Last 3 Months Advance Directives Latest Code Status on File Code Status Date Activated Date Inactivated Comments Full Code 06/30/2023 8:55 PM 07/01/2023 10:45 PM Question Answer Comments Code Status Discussion: Reviewed Preferences Code Status History Code Status Date Activated Date Inactivated Comments Full Code 01/23/2015 6:10 AM 01/25/2015 2:07 PM Question Answer Comments Code Status Discussion: Discussed Care Teams Final Inspector Movement Assembly Relationship Specialty Start Date End Date Elsa Smith MD [address] [facility] Fernandezmanolo ANTHONYMOUNIKA OLIVA [address] PCP - General Family Practice 10/15/22
--- NOTE | 2023-08-26 10:00 | CT_ITS ---
Patient: BURT SALCEDO Facility:?[facility] RIS Patient ID:?[id number] Site Patient ID:?[id number]. Site :?1990 Study:?CT-Sinus W/O-08/26/2023 11:24:37 AM Ordering Physician:ERNESTO Final Report: Indication: Chronic sinusitis Technique: Performed without IV contrast Comparison: CT 09/25/2022 Findings: Frontal sinuses: Clear. Ethmoid sinuses: Clear. Maxillary sinuses: Similar lobular mucous retention cyst within the right maxillary sinus measuring 1.6 cm clear left maxillary sinus. The maxillary sinus drainage pathways are patent on both sides. Sphenoid sinuses: Clear, including both sphenoethmoidal recesses. Nasal Cavity: Postop changes are present. Nasal septum is midline. No polyps. No TMJ abnormalities identified. The visualized portions of the orbits, intracranial contents and upper soft tissue neck are grossly negative. Impression: 1. Chronic mucous retention cyst right maxillary sinus. 2. Clear sinus drainage pathways. Please note that all CT scans at this facility use dose modulation, iterative reconstruction, and/or weight-based dosing when appropriate to reduce radiation dose to as low as reasonably achievable. Dictated by Ariel Quintana MD @ 08/29/2023 5:54:23 AM Signed by:?Ariel Quintana MD @08/29/2023 5:54:23 AM (Electronic Signature)
== END 2023-08-26 09:43 | disposition home or self-care (01) ==
LOC: CT 09:47
PROVIDERS: Visit Provider Otolaryngology
DX: J32.9 Chronic sinusitis, unspecified (principal); J32.0 Chronic maxillary sinusitis
CPT/HCPCS: 70486

== ENCOUNTER 2023-11-14 08:41 | Day surgery (SDC) | payer BC, SELFPAY ==
[2023-11-14] VITALS (11 sets, daily range): BP systolic 97–113; BP diastolic 55–69; PULSE 55–84; RESP 12–18; TEMP 36.3–36.8; O2SAT 97–100; BMI 20.8
[2023-11-14] MEDS: LACTATED RINGERS 1000 ML 1,000 ML 100 ML IV (08:35)
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
--- OUTSIDE RECORDS SUMMARY | 2023-11-14 08:44 | XMS_ITS | Data Portability ---
Author Name Unknown Address [address] [place] [address] Phone [phone] Organization [place] [facility] Address [address] [facility] [place] [address] Care Team Providers Care Turnaround Planner Name Role Phone KEYLA ELIAS Referring Provider [phone] MATT DARNELL PHYSICAL THERAPIST Physical Therapis t Assessment Encounter Date Assessment Date Assessment LastModified by Organization Details LastModified Time 03/26/2022 03/26/2022 CT was taken totom resendez in [place]. Not available 03/26/2022 14:22:18 03/26/2022 03/26/2022 Today [...] be done closer to her home in [place]. Today a prescription for cyclobenzaprine 5 mg [...] Physical Therapist, [address], [address], [place], [address], 10:25:52 Procedures None recorded. Surgeries None recorded. Imaging CT, temporal bone, w/o contrast 2021 [email or web address], [facility] [address], [place], [address], 10:27:28 Medication Orders cyclobenzap rine 5 mg tablet 2021 022 [facility] [address] [place] [address], [address], 11:24:14 Patient TargetsNo targets recorded. Patient Instructions Encounter Date Encounter Id Patient Instructions Last Modified By Organization Details Last Modified Time 03/26/2022 [id number] Self Care for TMD Not availab le [...] stabil izatio n applia nce Not Available [place] [address], [place], [address], 03/26/2022 10:19:35 03/26/20 22 04/02/2022 CT, tempo ral bone, w/o contr ast No observ ation record ed. [place] [address], [place], [address], 04/14/2022 15:29:37 04/11/20 CT, tempo ral bone, w/o contr ast No observ ation record ed. [email or web address] [place] [address], [place], [address], 04/11/2022 10:06:02 Result Notes None recorded. 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 022 SETH MIX BDS, [place] [address], [place], [address], [place] [facility] 2 12:01:52 Myofascial pain Active 022 SETH MIX BDS, [place] [address], [place], [address], [facility] 2 12:01:54 Arthralgia of temporomandibular joint Active 022 SETH MIX BDS, [place] [address], [place], [address], [place] [facility] 2 12:02:26 History of nasal sinus surgery Active 022 SETH MIX BDS, [place] [address], [place], [address], [facility] 2 12:03:14 Problem Notes None recorded. Procedures Surgical History Date Name Laterality Status Provider Name and Address Organization Details Recorded Time 03/26/2022 CT TMJ completed Lanette sahu, [facility] 03/26/2022 12:36:45 Imaging Results Imaging Date Name Status LastModified by Organiz [facility] Details LastModified Time 04/02/2022 CT, temporal bone, w/o contrast completed Leslie [address], [place], [address], 04/14/2022 15:29:37 04/11/2022 CT, temporal bone, w/o contrast completed [email or web address] Leslie [address], [place], [address], 04/11/2022 10:06:02 Procedure Notes None recorded. Medical [...] Updated DateTime 2 165.1 cm 23.3 kg/m2 04914.9 3 g 97.5 [degF] 82 /min 103 mm[Hg] 72 mm[Hg] Bhanu sahu [facility] 2 10:24:13 Date Recorded Body height Provider Name an d Address Organization Details Last Updated DateTime 03/26/2022 165.1 cm Lanette sahu [facility] 03/26/2022 12:36:53 Social History Question Answer Notes LastModified by Organizat ion Details LastModified Time Tobacco Smoking Status Former Smoker Bhanu sahu [facility] 03/26/2022 10:25:39 [...] Or The Highest Degree You Have Received? [id number] Information not available 03/26/2022 What Is Your [...] Meningitis N Pancreatic disease N Heart Attack (OR) N Stomach Ulcers N Back pain Y [...] Encounter Start Date Encounter Closed Date Diagnosis/Indication Diagnosis SNOMED-CT Code [id number] SETH MIX BDS, [place] [address] [place] [address] 03/26/2022 10:00:05 03/26/2022 11:29:16 Articular disc disorder of temporomandibular joint 02197958 Myofascial pain 34603252 9 Arthralgia of temporomandibular joint 96096189 History of nasal sinus surgery [id number] SETH MIX BDS, [place] [facility] [address] [facility] [address] [place] [address] 03/26/2022 12:17:09 03/26/2022 14:12:05 Arthralgia of temporomandibular joint [id number] Health Concerns Section Related Observation LastModified by Organization Detai ls LastModified Time None Recorded Concern Status LastModified by Organization Details LastModified Time None Recorded Advance Directives Directive None Recorded Payers Encounter Date Sequence Insurance Name Policy Number Policy Garcia Covered Member ID Garcia Member ID Guarantor Name 03/26/2022 1 [facility] MNDBBS Eloisa Janantwan [id number] Eloisa Chriss 03/26/2022 1 [place] [employer] Eloisa Janantwan [id number] Eloisa Janantwan Notes Date Note Type Note Provider Name [...] at present. SETH MIX BDS, [place] [address] [facility] [address], [place], [address], [facility] 03/26/2022 12:20:03 2 text/html HPI Notes: ct scan in [facility] SETH MIX BDS, [place] [address] [facility] [address], [place], [address], [facility] 03/26/2022 14:22:55 OBGyn Episode No OBEpisode recorded.
[2023-11-14] MEDS: SODIUM CHLORIDE 0.9 % (FLUSH) 10 ML SYRINGE IVF (09:07)
[2023-11-14] MEDS: OXYMETAZOLINE 0.05% NASAL SPRAY 2 SPRAY NOSTRIL-B (09:15)
[2023-11-14 09:17] LABS: Ur HCG Qualitative* Negative (Negative)
[2023-11-14] MEDS: COCAINE HCL 4 % 4 ML SOLUTION NOSTRIL-B (10:15)
[2023-11-14] MEDS: MUPIROCIN 1 GM PACKET 1 APPLIC TOPICAL (10:15)
[2023-11-14] MEDS: BUPIVACAINE 0.5 %/EPI 1:200K 30 ML INJECTION (10:15)
[2023-11-14] MEDS: AYR SALINE NASAL GEL 1 APPLIC NOSTRIL-B (10:16)
--- NOTE | 2023-11-14 10:26 | W.PM.ENTPROC ---
Procedure Note Date of procedure: 11/14/23 Procedure: Preoperative diagnosis mucosal thickening floor right maxillary sinus symptomatic, nasal obstruction, bilateral inferior turbinate hypertrophy Postoperative diagnosis same Procedure endoscopic right maxillary antrostomy with tissue removal, submucous partial resection inferior turbinates bilateral Under general endotracheal anesthesia patient was prepped draped usual fashion nose decongested injected. The maxillary sinus was entered through the previous antrostomy site there was a small amount of thickened mucosa surrounding the was removed. A small amount of purulent material was removed as well as thickening from the floor of the sinus. Image guidance was used for this. A stab incision was made in the anterior inferior turbinate a tunnel created with a Jose G dissector. The gary bone was outfractured a conservative anterior submucous resection was performed. This was repeated on the left side in identical fashion. A Merocel pack was placed on the right side in the middle meatus. The patient procedure well was taken recovery in satisfactory condition blood loss was less than 10 mL. Surgeon: Marcel Elias MD
--- NOTE | 2023-11-14 10:37 | W.ANESCHARGE ---
Anesthesia Charges Start Date/Time Anesthesia Start Date: 11/14/23 Anesthesia Start Time: 09:54 Stop Date/Time Anesthesia Stop Date: 11/14/23 Anesthesia Stop Time: 10:31
[2023-11-14] MEDS: OXYCODONE 5 MG TABLET PO (11:11)
[2023-11-14] MEDS: IBUPROFEN 200 MG TABLET PO (11:11)
== END 2023-11-14 11:44 | disposition home or self-care (01) ==
PROVIDERS: Nurse Anesthetist, Certified Registered; PCP Family Medicine; Visit Provider Otolaryngology
PROC: (CPT 31231; principal; 2023-11-14 10:00)
DX: J32.0 Chronic maxillary sinusitis (principal); J34.3 Hypertrophy of nasal turbinates; J34.89 Other specified disorders of nose and nasal sinuses
CPT/HCPCS: 31267; 30140; 00160; 81025; 88305; A9270; J0330; J1100; J2405; J2704; J3010; J3490; J7120